=== PATIENT | female | born 1995 | race African-American/Black ===

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

== ENCOUNTER 2017-08-18 17:42 | Emergency (ER) | payer OTHER ==
[~2017-08-18] VITALS: Ht 170.2 cm; Wt 68.0 kg
[~2017-08-18 17:42] MED LIST changes: +PEPCID20 MG PO; +PREDNISONE 20 M20 MG PO
[2017-08-18] MEDS ORDERED: EPIPEN0.3 MG/0.1 IM (17:50)
[2017-08-18] MEDS ORDERED: PREDNISONE 20 M20 MG PO (22:12)
[2017-08-18] MEDS ORDERED: PEPCID20 MG PO (22:12)
[2017-08-18] MEDS ORDERED: EPIPEN 2-P0.3 MG/0.3 IM (22:12)
== END 2017-08-18 22:25 | disposition home or self-care (01) ==
LOC: ER 17:42
DX: T78.09XA Anaphylactic reaction due to other food products, initial encounter (principal); Z91.013 Allergy to seafood

== ENCOUNTER 2017-10-18 09:41 | Emergency (ER) | payer OTHER ==
[~2017-10-18] VITALS: Ht 170.2 cm; Wt 66.2 kg
[~2017-10-18 09:41] MED LIST changes: +EPIPEN 2-P0.3 MG/0.3 IM; +EPIPEN0.3 MG/0.1 IM
[2017-10-18 09:44] VITALS: BP 115/75
[2017-10-18] MEDS ORDERED: TRAMADOL 50 MG50 MG PO (10:23)
== END 2017-10-18 11:03 | disposition home or self-care (01) ==
LOC: ER 09:41
DX: G89.29 Other chronic pain (principal); M08.00 Unspecified juvenile rheumatoid arthritis of unspecified site; Z91.013 Allergy to seafood

== ENCOUNTER 2018-01-29 18:37 | Emergency (ER) | payer OTHER ==
[~2018-01-29] VITALS: Ht 170.2 cm; Wt 66.2 kg
[~2018-01-29 18:37] MED LIST changes: +TRAMADOL 50 MG50 MG PO
[2018-01-29] MEDS ORDERED: ANTIVERT25 MG PO (20:17)
[2018-01-29] MEDS ORDERED: NAPROXEN375 MG PO (20:17)
[2018-01-29 20:31] VITALS: BP 113/69
== END 2018-01-29 20:31 | disposition home or self-care (01) ==
LOC: ER 18:37
DX: G44.209 Tension-type headache, unspecified, not intractable (principal); R42 Dizziness and giddiness; R11.0 Nausea; M19.90 Unspecified osteoarthritis, unspecified site; Z91.013 Allergy to seafood

== ENCOUNTER 2018-04-20 22:32 | Emergency (ER) | payer OTHER ==
[~2018-04-20] VITALS: Ht 170.2 cm; Wt 61.7 kg
[~2018-04-20 22:32] MED LIST changes: +ANTIVERT25 MG PO; +NAPROXEN375 MG PO
[2018-04-20] MEDS ORDERED: ROBAXIN500 MG PO (23:04)
[2018-04-21 00:06] VITALS: BP 116/76
== END 2018-04-21 00:10 | disposition home or self-care (01) ==
LOC: ER 22:32
DX: S09.90XA Unspecified injury of head, initial encounter (principal); W22.01XA Walked into wall, initial encounter; Y93.89 Activity, other specified; Y92.89 Other specified places as the place of occurrence of the external cause; Y99.8 Other external cause status

== ENCOUNTER 2018-12-19 10:49 | Emergency (ER) | payer OTHER ==
[~2018-12-19] VITALS: Ht 170.2 cm; Wt 65.8 kg
[~2018-12-19 10:49] MED LIST changes: +ROBAXIN500 MG PO
[2018-12-19] MEDS ORDERED: NORFLEX100 MG PO (12:17)
[2018-12-19] MEDS ORDERED: NAPROSYN500 MG PO (12:17)
[2018-12-19] MEDS ORDERED: TRAMADOL 50 MG50 MG PO (12:17)
[2018-12-19 13:10] VITALS: BP 133/90
[2018-12-19 13:39] LABS: HEMATOCRIT 39.7 % (37.0-47.0); HEMOGLOBIN 13.4 gm/dL (12.0-15.0); MCH 32.7 pg (26.0-34.0); MCHC 33.6 g/dL (28.0-37.0); MCV 97.1 fL (80.0-100.0); RBC 4.09 mil/uL (4.20-5.00); RDW 13.1 % (10.5-14.5)
[2018-12-19 13:50] LABS: CALCIUM 9.3 mg/dL (8.5-10.1); CREATININE 0.9 mg/dL (0.6-1.0); POTASSIUM 4.3 mmol/L (3.5-5.1)
[2018-12-19 13:57] LABS: ALBUMIN 4.1 g/dL (3.4-5.0); TOTAL BILIRUBIN 0.9 mg/dL (<0.1-1.0); TOTAL PROTEIN 7.9 g/dL (6.4-8.2)
[2018-12-27] MEDS ORDERED: TRAMADOL 50 MG50 MG PO (16:24)
== END 2018-12-19 13:11 | disposition home or self-care (01) ==
LOC: ER 10:49
PROVIDERS: Emergency Medicine
DX: M13.812 Other specified arthritis, left shoulder (principal); M13.811 Other specified arthritis, right shoulder; M08.00 Unspecified juvenile rheumatoid arthritis of unspecified site; Z91.013 Allergy to seafood

== ENCOUNTER 2018-12-27 15:55 | Emergency (ER) | payer OTHER ==
[~2018-12-27] VITALS: Ht 170.2 cm; Wt 65.3 kg
[2018-12-27 16:44] VITALS: BP 130/100
== END 2018-12-27 16:44 | disposition home or self-care (01) ==
LOC: ER 15:55
DX: M08.00 Unspecified juvenile rheumatoid arthritis of unspecified site (principal); Z91.013 Allergy to seafood

== ENCOUNTER 2019-03-21 08:30 | Emergency (ER) | payer OTHER ==
[~2019-03-21] VITALS: Ht 170.2 cm; Wt 63.5 kg
[~2019-03-21 08:30] MED LIST changes: +NAPROSYN500 MG PO; +NORFLEX100 MG PO
[2019-03-21] MEDS ORDERED: PEPCID40 MG PO (09:15)
[2019-03-21] MEDS ORDERED: PREDNISONE 20 M20 MG PO (09:15)
[2019-03-21] MEDS ORDERED: EPIPEN 2-P0.3 MG/0.3 IM (09:15)
[2019-03-21 10:00] VITALS: BP 126/80
== END 2019-03-21 10:00 | disposition home or self-care (01) ==
LOC: ER 08:30
DX: T78.1XXA Other adverse food reactions, not elsewhere classified, initial encounter (principal); M06.9 Rheumatoid arthritis, unspecified

== ENCOUNTER 2019-04-13 13:21 | Emergency (ER) | payer OTHER ==
[~2019-04-13] VITALS: Ht 170.2 cm; Wt 65.8 kg
[~2019-04-13 13:21] MED LIST changes: +PEPCID40 MG PO
[2019-04-13 13:27] VITALS: BP 127/78
== END 2019-04-13 14:05 | disposition home or self-care (01) ==
LOC: ER 13:21
DX: M08.09 Unspecified juvenile rheumatoid arthritis, multiple sites (principal); Z98.890 Other specified postprocedural states; Z91.013 Allergy to seafood

== ENCOUNTER 2019-05-11 10:47 | Emergency (ER) | payer OTHER ==
[~2019-05-11] VITALS: Ht 170.2 cm; Wt 61.2 kg
[2019-05-11 11:24] LABS: URINE BILIRUBIN NEGATIVE (Negative); URINE BLOOD NEGATIVE (Negative); URINE CLARITY CLEAR; URINE COLOR YELLOW; URINE GLUCOSE-RANDOM* NEGATIVE (Negative); URINE KETONES NEGATIVE (Negative); URINE LEUKOCYTES-REFLEX NEGATIVE (Negative); URINE NITRITE-REFLEX NEGATIVE (Negative); URINE PROTEIN (DIPSTICK) NEGATIVE (Negative); URINE SPECIFIC GRAVITY >= 1.030 (1.005-1.035); URINE UROBILINOGEN 0.2 E.U./dl (0.2-1.0)
[2019-05-11 11:36] LABS: ABSOLUTE NEUTROPHILS 1.8 thou/uL (1.4-8.2); BASOPHILS 0.9 % (0.0-2.0); EOSINOPHILS 1.5 % (0.0-3.0); HEMATOCRIT 37.9 % (37.0-47.0); HEMOGLOBIN 12.4 gm/dL (12.0-15.0); LYMPHOCYTES 57.8 % (24.0-44.0); MCH 31.7 pg (26.0-34.0); MCHC 32.6 g/dL (28.0-37.0); MCV 97.3 fL (80.0-100.0); MONOCYTES 6.5 % (1.0-8.0); PLATELET COUNT 192 thou/uL (150-400); POLYS 33.3 % (36.0-66.0); RDW 12.3 % (10.5-14.5); WBC 5.3 thou/uL (4.0-11.0)
[2019-05-11 11:40] LABS: CREATININE 0.8 mg/dL (0.6-1.0); POTASSIUM 3.9 mmol/L (3.5-5.1)
[2019-05-11 11:46] LABS: ALBUMIN 3.5 g/dL (3.4-5.0); TOTAL BILIRUBIN 0.7 mg/dL (<0.1-1.0); TOTAL PROTEIN 7.1 g/dL (6.4-8.2)
[2019-05-11] MEDS ORDERED: ZOFRAN ODT4 MG DISSOLVE (12:06)
[2019-05-11] MEDS ORDERED: PEPCID20 MG PO (12:06)
[2019-05-11 12:07] VITALS: BP 108/76
== END 2019-05-11 12:07 | disposition home or self-care (01) ==
LOC: ER 10:47
PROVIDERS: Physician Assistant
DX: R10.13 Epigastric pain (principal); R11.2 Nausea with vomiting, unspecified; M06.9 Rheumatoid arthritis, unspecified; Z98.890 Other specified postprocedural states; Z91.013 Allergy to seafood

== ENCOUNTER 2019-11-13 15:24 | Emergency (ER) | payer OTHER ==
[~2019-11-13] VITALS: Ht 170.2 cm; Wt 66.2 kg
[~2019-11-13 15:24] MED LIST changes: +ZOFRAN ODT4 MG DISSOLVE
[2019-11-13 15:31] VITALS: BP 128/83
[2019-11-13] MEDS ORDERED: SPRINTEC1 EACH PO (15:41)
[2019-11-13 16:10] LABS: URINE BILIRUBIN NEGATIVE (Negative); URINE BLOOD NEGATIVE (Negative); URINE CLARITY CLEAR; URINE COLOR YELLOW; URINE GLUCOSE-RANDOM* NEGATIVE (Negative); URINE KETONES NEGATIVE (Negative); URINE LEUKOCYTES-REFLEX NEGATIVE (Negative); URINE NITRITE-REFLEX NEGATIVE (Negative); URINE PROTEIN (DIPSTICK) NEGATIVE (Negative); URINE SPECIFIC GRAVITY >= 1.030 (1.005-1.035); URINE UROBILINOGEN 0.2 E.U./dl (0.2-1.0)
[2019-11-13] MEDS ORDERED: FLAGYL500 M1 PO (16:22)
[2019-11-13] MEDS ORDERED: AZITHROMYCIN 2250 MG PO (16:22)
== END 2019-11-13 16:53 | disposition home or self-care (01) ==
LOC: ER 15:24
PROVIDERS: Physician Assistant
DX: N76.0 Acute vaginitis (principal); M06.9 Rheumatoid arthritis, unspecified; Z20.2 Contact with and (suspected) exposure to infections with a predominantly sexual mode of transmission; Z79.899 Other long term (current) drug therapy; Z91.013 Allergy to seafood

== ENCOUNTER 2020-01-13 20:36 | Emergency (ER) | payer OTHER ==
[~2020-01-13] VITALS: Ht 170.2 cm; Wt 61.7 kg
[~2020-01-13 20:36] MED LIST changes: +AZITHROMYCIN 2250 MG PO; +FLAGYL500 M1 PO; +SPRINTEC1 EACH PO
[2020-01-13] MEDS ORDERED: AMOXICILLIN 50500 M1 PO (21:47)
[2020-01-13 22:22] VITALS: BP 120/74
== END 2020-01-13 22:29 | disposition home or self-care (01) ==
LOC: ER 20:36
DX: J02.9 Acute pharyngitis, unspecified (principal); H92.02 Otalgia, left ear; J35.1 Hypertrophy of tonsils; Z91.013 Allergy to seafood; Z98.890 Other specified postprocedural states; M06.9 Rheumatoid arthritis, unspecified; Z79.899 Other long term (current) drug therapy

== ENCOUNTER 2020-03-18 21:19 | Emergency (ER) | payer OTHER ==
[~2020-03-18] VITALS: Ht 170.2 cm; Wt 63.5 kg
[~2020-03-18 21:19] MED LIST changes: +AMOXICILLIN 50500 M1 PO
[2020-03-18] MEDS ORDERED: NORFLEX100 MG PO (23:17)
[2020-03-18] MEDS ORDERED: NAPROXEN375 MG PO (23:17)
[2020-03-18 23:32] VITALS: BP 114/77
== END 2020-03-18 23:33 | disposition home or self-care (01) ==
LOC: ER 21:19
DX: S93.401A Sprain of unspecified ligament of right ankle, initial encounter (principal); S16.1XXA Strain of muscle, fascia and tendon at neck level, initial encounter; S80.01XA Contusion of right knee, initial encounter; M06.9 Rheumatoid arthritis, unspecified; Z91.013 Allergy to seafood; Z98.890 Other specified postprocedural states; Z79.899 Other long term (current) drug therapy; Z91.041 Radiographic dye allergy status; V49.49XA Driver injured in collision with other motor vehicles in traffic accident, initial encounter; Y93.I9 Activity, other involving external motion; Y92.488 Other paved roadways as the place of occurrence of the external cause; Y99.8 Other external cause status

== ENCOUNTER 2020-08-29 17:48 | Emergency (ER) | payer OTHER ==
[~2020-08-29] VITALS: Ht 170.2 cm; Wt 59.0 kg
[2020-08-29 18:02] VITALS: BP 122/88
[2020-08-29 19:03] LABS: URINE BILIRUBIN NEGATIVE (Negative); URINE BLOOD NEGATIVE (Negative); URINE CLARITY CLEAR; URINE COLOR YELLOW; URINE GLUCOSE-RANDOM* NEGATIVE (Negative); URINE KETONES TRACE (Negative); URINE LEUKOCYTES-REFLEX NEGATIVE (Negative); URINE NITRITE-REFLEX NEGATIVE (Negative); URINE PROTEIN (DIPSTICK) NEGATIVE (Negative); URINE SPECIFIC GRAVITY 1.025 (1.005-1.035); URINE UROBILINOGEN 0.2 E.U./dl (0.2-1.0)
[2020-08-29 19:47] LABS: ABSOLUTE NEUTROPHILS 2.8 thou/uL (1.4-8.2); BASOPHILS 0.8 % (0.0-2.0); EOSINOPHILS 0.6 % (0.0-3.0); HEMATOCRIT 38.2 % (37.0-47.0); HEMOGLOBIN 12.5 gm/dL (12.0-15.0); LYMPHOCYTES 45.2 % (24.0-44.0); MCH 32.7 pg (26.0-34.0); MCHC 32.8 g/dL (28.0-37.0); MCV 99.6 fL (80.0-100.0); PLATELET COUNT 168 thou/uL (150-400); POLYS 46.4 % (36.0-66.0); RBC 3.84 mil/uL (4.20-5.00); RDW 12.8 % (10.5-14.5); WBC 6.1 thou/uL (4.0-11.0)
[2020-08-29 19:59] LABS: CALCIUM 8.8 mg/dL (8.5-10.1); CREATININE 0.8 mg/dL (0.6-1.0); POTASSIUM 4.1 mmol/L (3.5-5.1)
[2020-08-29 20:05] LABS: ALBUMIN 4.1 g/dL (3.4-5.0); TOTAL BILIRUBIN 0.8 mg/dL (0.2-1.0); TOTAL PROTEIN 7.5 g/dL (6.4-8.2)
[2020-08-29] MEDS ORDERED: BUTALB-APAP-CA1 EACH PO (20:11)
[2020-08-29] MEDS ORDERED: ONDANSETRON HCL4 M2 PO (20:11)
--- NOTE | 2020-09-01 07:23 | EKG ---
[address] [place] [address] ELECTROCARDIOGRAM REPORT Name: HAJA BOYD Room #: [facility] Gomez#: [id number] Admission: 08/29/20 Attend Phys: Discharge: 08/29/20 Date of : [birth year] Report #: [id number] [facility] ED Test Date: 2020-08-29 Test Time: 18:48:51 Pat Name: HAJA BOYD Department: Room: Gender: Assistant Center Director: VERNELL : 1995 Requested By: Avinash Cardenas Order Number: [id number] MD: Jeff Nettles Measurements Intervals [place] Rate: 57 P: 72 MT: 135 QRS: 95 QRSD: 94 T: 50 QT: 413 QTc: 402 Interpretive Statements Sinus bradycardia with sinus arrhythmia Borderline right axis deviation No previous ECG available for comparison Electronically Signed On 09-01-2020 7:22:57 SYSTEMS MANAGER by Jeff Nettles [email or web address] <ELECTRONICALLY SIGNED> By: Jeff Nettles MD, [facility] 09/01/20 0722 1848 1848 Jeff Nettles MD, FACC /EPI
== END 2020-08-29 20:33 | disposition home or self-care (01) ==
LOC: ER 17:48
PROVIDERS: Physician Assistant
DX: G43.909 Migraine, unspecified, not intractable, without status migrainosus (principal); F41.9 Anxiety disorder, unspecified; Z79.899 Other long term (current) drug therapy; Z91.013 Allergy to seafood; Z91.041 Radiographic dye allergy status

== ENCOUNTER 2020-11-10 20:42 | Emergency (ER) | payer OTHER ==
[~2020-11-10] VITALS: Ht 170.2 cm; Wt 59.0 kg
[~2020-11-10 20:42] MED LIST changes: +BUTALB-APAP-CA1 EACH PO; +ONDANSETRON HCL4 M2 PO
[2020-11-10 21:08] LABS: URINE BILIRUBIN NEGATIVE (Negative); URINE BLOOD NEGATIVE (Negative); URINE CLARITY CLEAR; URINE COLOR YELLOW; URINE GLUCOSE-RANDOM* NEGATIVE (Negative); URINE KETONES NEGATIVE (Negative); URINE LEUKOCYTES-REFLEX NEGATIVE (Negative); URINE NITRITE-REFLEX NEGATIVE (Negative); URINE PROTEIN (DIPSTICK) NEGATIVE (Negative); URINE SPECIFIC GRAVITY 1.015 (1.005-1.035); URINE UROBILINOGEN 0.2 E.U./dl (0.2-1.0)
[2020-11-10 21:31] LABS: ABSOLUTE NEUTROPHILS 3.1 thou/uL (1.4-8.2); EOSINOPHILS 1.7 % (0.0-3.0); HEMATOCRIT 37.1 % (37.0-47.0); HEMOGLOBIN 12.5 gm/dL (12.0-15.0); LYMPHOCYTES 51.5 % (24.0-44.0); MCH 33.4 pg (26.0-34.0); MCHC 33.6 g/dL (28.0-37.0); MCV 99.4 fL (80.0-100.0); MONOCYTES 6.9 % (1.0-8.0); PLATELET COUNT 205 thou/uL (150-400); POLYS 38.9 % (36.0-66.0); RBC 3.73 mil/uL (4.20-5.00); RDW 12.6 % (10.5-14.5)
[2020-11-10 21:38] LABS: CALCIUM 8.5 mg/dL (8.5-10.1); CREATININE 0.9 mg/dL (0.6-1.0); POTASSIUM 3.7 mmol/L (3.5-5.1)
[2020-11-10 22:57] VITALS: BP 111/55
== END 2020-11-10 23:05 | disposition home or self-care (01) ==
LOC: ER 20:42
PROVIDERS: Emergency Medicine
DX: O03.9 Complete or unspecified spontaneous abortion without complication (principal); Z3A.08 8 weeks gestation of pregnancy; Z91.041 Radiographic dye allergy status; Z91.013 Allergy to seafood; Z79.899 Other long term (current) drug therapy